=== PATIENT | female | born 1980 | race Caucasian/White ===

== ENCOUNTER 2017-07-26 05:09 | Day surgery (SDC) | payer MEDICAID ==
[2017-07-24 12:12] LABS: BASOPHILS 0.3 % (0-2); EOSINOPHILS 3.6 % (0-7); HEMATOCRIT 38.2 % (36.0-48.0); HEMOGLOBIN 12.3 g/dL (12-16); IMMATURE GRANULOCYTES 0.1 % (0-5); LYMPHOCYTES 20.4 % (15-50); MCH 27.4 pg (26.0-34.0); MCHC 32.2 g/dL (31.0-37.0); MCV 85.1 fL (80.0-100.0); MEAN PLATELET VOLUME 10.2 fL (7.4-10.4); MONOCYTES 4.9 % (2-11); NEUTROPHILS 70.7 % (40-80); PLATELET COUNT 161 10x3/uL (130-400); RBC 4.49 10x6/uL (4.00-5.40); RDW 14.5 % (11.5-14.5); WBC 7.8 10x3/uL (4.8-10.8)
[2017-07-24 12:22] LABS: CALC OSMOLALITY 277 mosm/kg (275-300); CALCIUM 8.9 mg/dL (8.5-10.1); CARBON DIOXIDE 27.1 mmol/L (21.0-32.0); CHLORIDE - SERUM 103 mmol/L (98-107); CREATININE - SERUM 0.8 mg/dL (0.6-1.3); GLUCOSE 95 mg/dL (74-106); POTASSIUM - SERUM 4.1 mmol/L (3.5-5.1); SODIUM 140 mmol/L (136-145); UREA NITROGEN 9 mg/dL (7-18); eGFR NON AFRICAN AMERICAN 85 mL/min (90-120)
[2017-07-26 06:32] VITALS: BP 150/66; BMI 32.6
[2017-07-26 06:37] LABS: HCG URINE NEGATIVE (NEGATIVE)
--- NOTE | 2017-07-26 07:03 | HP ---
PATIENT: MARVIN GALAN MEDICAL RECORD: [id number] ACCOUNT: [id number] LOCATION:[facility] : 79 ADMISSION DATE: 07/26/17 HISTORY AND PHYSICAL EXAMINATION HISTORY OF PRESENT ILLNESS: This patient is a 37-year-old white female who desires sterilization by tubal ligation and she desires endometrial ablation for abnormal uterine bleeding. MEDICAL HISTORY: DRUG ALLERGIES: None known. Denies heart disease, diabetes, hypertension, kidney problems, thyroid problems. PHYSICAL EXAMINATION: VITAL SIGNS: Stable. HEENT: Grossly unremarkable. LUNGS: Clear. HEART: Regular rate and rhythm. ABDOMEN: Soft and nontender. PELVIC: Examination is current and deferred for anesthesia. EXTREMITIES: No cyanosis, clubbing or edema. NEUROLOGIC: Grossly intact. IMPRESSION: Menorrhagia, undesired fertility. PLAN: Endometrial ablation and laparoscopic tubal sterilization in a.m. I have discussed with the patient the potential risks of surgery, anesthesia, infection, bleeding, injury to pelvic organs, second operation if problems were do occur. TRANSINT:[id number] Voice Confirmation ID: [id number] DOCUMENT ID: [id number] DO BAIN MD at 0703 CC: [id number] DICTATION DATE: 07/25/17 1314 CALCINER OPERATOR: 07/25/17 [id number] [place] [address]
--- NOTE | 2017-07-26 13:17 | NUR ---
1317--PHENERGHAN 25MG IM GIVEN FOR NAUSEA IN LEFT BUTTOCKS. HGSHAHRIAR RN
--- NOTE | 2017-07-26 17:17 | NUR ---
1317--PT COMPLAINS OF PAIN, DEMEROL 50MG GIVEN X1 TAB BY MOUTH. WILL CONTINUE TO MONITOR. ROSSI RN
--- NOTE | 2017-07-26 17:28 | NUR ---
1447--PT VOIDS, IV DC'D. ROSSI DU 1500--DISCHARGE INSTRUCTIONS GIVEN, PT VERBALIZES UNDERSTANDING. PT OFF UNIT VIA WC. ROSSI DU
== END 2017-07-26 15:00 | disposition home or self-care (01) ==
LOC: D.OPS 05:09 → D.PAN 07:30 → D.OPS 07:30
PROVIDERS: Obstetrics & Gynecology
DX: Z30.2 Encounter for sterilization (principal); N92.0 Excessive and frequent menstruation with regular cycle; N83.02 Follicular cyst of left ovary; N83.8 Other noninflammatory disorders of ovary, fallopian tube and broad ligament; Z01.812 Encounter for preprocedural laboratory examination

== ENCOUNTER → 2018-09-25 07:55 | Outpatient (CLI) | payer MEDICAID | LOC: D.US 07:55 | DX: N83.202 Unspecified ovarian cyst, left side (principal) ==

== ENCOUNTER 2018-10-21 01:33 | Emergency (ER) | payer MEDICAID ==
[~2018-10-21] VITALS: Ht 165.1 cm; Wt 79.5 kg
[2018-10-21 01:39] VITALS: Ht 165.1 cm; Wt 79.5 kg
[2018-10-21] MEDS ORDERED: VISTARIL25 MG (01:40)
[2018-10-21] MEDS ORDERED: ARMOUR THYROID90 MG (01:40)
[2018-10-21] MEDS ORDERED: LEXAPRO5 MG (01:40)
[2018-10-21] MEDS ORDERED: FISH OIL 1,0001 CA1 (01:41)
[2018-10-21] MEDS ORDERED: VITAMIN D10000 UNI1 (01:41)
[2018-10-21] MEDS ORDERED: IBUPROFEN600 MG (01:41)
[2018-10-21] MEDS ORDERED: FER-IN-SOL DROP50 ML (01:41)
[2018-10-21 02:06] LABS: APPEARANCE HAZY (CLEAR); BILIRUBIN NEGATIVE (NEGATIVE); COLOR YELLOW (YELLOW); GLUCOSE NEGATIVE (NEGATIVE); HCG URINE NEGATIVE (NEGATIVE); KETONE SMALL mg/dL (NEGATIVE); NITRITE NEGATIVE (NEGATIVE); PROTEIN TRACE mg/dL (NEGATIVE); UROBILINOGEN NORMAL (NORMAL)
[2018-10-21 02:19] LABS: BACTERIA FEW /hpf (NONE SEEN); EPITHELIAL CELLS OCC /hpf (0-5); HYALINE CAST OCC /lpf (NONE SEEN); MUCUS <1+ /lpf (NONE SEEN); RED CELLS - URINE 0-5 /hpf (0-5); WHITE CELLS - URINE 0-5 /hpf (0-5)
[2018-10-21 02:23] LABS: BASOPHILS 0.3 % (0-2); EOSINOPHILS 1.5 % (0-7); HEMATOCRIT 37.9 % (36.0-48.0); HEMOGLOBIN 12.4 g/dL (12-16); IMMATURE GRANULOCYTES 0.1 % (0-5); LYMPHOCYTES 19.9 % (15-50); MCH 28.9 pg (26.0-34.0); MCHC 32.7 g/dL (31.0-37.0); MCV 88.3 fL (80.0-100.0); MEAN PLATELET VOLUME 10.8 fL (7.4-10.4); MONOCYTES 4.4 % (2-11); NEUTROPHILS 73.8 % (40-80); PLATELET COUNT 181 10x3/uL (130-400); RBC 4.29 10x6/uL (4.00-5.40); RDW 13.5 % (11.5-14.5); WBC 9.2 10x3/uL (4.8-10.8)
[2018-10-21 02:44] LABS: ALBUMIN 3.5 g/dL (3.4-5.0); ANION GAP 14.4 mmol/L (8-16); BILIRUBIN - TOTAL 0.29 mg/dL (0.2-1.3); CALCIUM 9.6 mg/dL (8.5-10.1); CARBON DIOXIDE 25.9 mmol/L (21.0-32.0); CREATININE - SERUM 0.9 mg/dL (0.6-1.3); POTASSIUM - SERUM 4.3 mmol/L (3.5-5.1); PROTEIN - SERUM 7.4 g/dL (6.4-8.2)
[2018-10-21] MEDS ORDERED: NORCO 7.5/325 T1 TA1 PO (04:05)
[2018-10-21 04:35] VITALS: BP 145/79
== END 2018-10-21 04:36 | disposition home or self-care (01) ==
LOC: D.ER 01:33
PROVIDERS: Emergency Medicine
DX: R10.2 Pelvic and perineal pain (principal)

== ENCOUNTER 2019-01-21 20:19 | Emergency (ER) | payer MEDICAID ==
[~2019-01-21] VITALS: Ht 165.1 cm; Wt 81.6 kg
[~2019-01-21 20:19] MED LIST: ARMOUR THYROID90 MG; FER-IN-SOL DROP50 ML; FISH OIL 1,0001 CA1; IBUPROFEN600 MG; LEXAPRO5 MG; NORCO 7.5/325 T1 TA1 PO; VISTARIL25 MG; VITAMIN D10000 UNI1
[2019-01-21] MEDS ORDERED: SUMATRIPTAN SUC25 MG (20:39)
[2019-01-21 21:47] LABS: BASOPHILS 0.3 % (0-2); EOSINOPHILS 3.3 % (0-7); HEMATOCRIT 39.7 % (36.0-48.0); HEMOGLOBIN 13.1 g/dL (12-16); IMMATURE GRANULOCYTES 0.3 % (0-5); LYMPHOCYTES 18.8 % (15-50); MCH 27.8 pg (26.0-34.0); MCV 84.1 fL (80.0-100.0); MEAN PLATELET VOLUME 10.4 fL (7.4-10.4); MONOCYTES 4.9 % (2-11); NEUTROPHILS 72.4 % (40-80); PLATELET COUNT 186 10x3/uL (130-400); RBC 4.72 10x6/uL (4.00-5.40); RDW 14.3 % (11.5-14.5); WBC 10.4 10x3/uL (4.8-10.8)
[2019-01-21 21:52] LABS: ALBUMIN 3.6 g/dL (3.4-5.0); ALKALINE PHOSPHATASE 63 U/L (46-116); ALT (SGPT) 25 U/L (10-68); BILIRUBIN - TOTAL 0.42 mg/dL (0.2-1.3); CALC OSMOLALITY 276 mosm/kg (275-300); CALCIUM 9.1 mg/dL (8.5-10.1); CARBON DIOXIDE 27.1 mmol/L (21.0-32.0); CHLORIDE - SERUM 102 mmol/L (98-107); CREATININE - SERUM 0.9 mg/dL (0.6-1.3); GLUCOSE 95 mg/dL (74-106); POTASSIUM - SERUM 3.6 mmol/L (3.5-5.1); PROTEIN - SERUM 7.8 g/dL (6.4-8.2); SODIUM 138 mmol/L (136-145); UREA NITROGEN 14 mg/dL (7-18); eGFR NON AFRICAN AMERICAN 74 mL/min (90-120)
[2019-01-21 21:57] LABS: AMYLASE - SERUM 35 U/L (25-115); LIPASE 177 U/L (73-393)
[2019-01-21 21:58] LABS: TROPONIN-I < 0.017 ng/mL (0.000-0.060)
[2019-01-21 22:00] LABS: APPEARANCE HAZY (CLEAR); BILIRUBIN NEGATIVE (NEGATIVE); COLOR YELLOW (YELLOW); GLUCOSE NEGATIVE (NEGATIVE); KETONE NEGATIVE (NEGATIVE); NITRITE NEGATIVE (NEGATIVE); PROTEIN NEGATIVE (NEGATIVE); SPECIFIC GRAVITY 1.025 (1.005-1.020); UROBILINOGEN NORMAL (NORMAL)
[2019-01-21 22:02] LABS: BACTERIA MANY /hpf (NONE SEEN); RED CELLS - URINE 0-5 /hpf (0-5)
[2019-01-21] MEDS ORDERED: MACROBID100 MG PO (23:13)
== END 2019-01-21 23:18 | disposition home or self-care (01) ==
LOC: D.ER 20:19
PROVIDERS: Family Medicine
DX: N39.0 Urinary tract infection, site not specified (principal); R93.3 Abnormal findings on diagnostic imaging of other parts of digestive tract

== ENCOUNTER 2019-02-20 04:21 | Emergency (ER) | payer BC ==
[~2019-02-20] VITALS: Ht 165.1 cm; Wt 77.3 kg
[~2019-02-20 04:21] MED LIST changes: +MACROBID100 MG PO; +SUMATRIPTAN SUC25 MG
[2019-02-20] MEDS ORDERED: EFFEXOR50 MG (04:26)
[2019-02-20] MEDS ORDERED: NAPROSYN500 MG PO (04:38)
[2019-02-20] MEDS ORDERED: SKELAXIN800 MG PO (04:38)
== END 2019-02-20 04:49 | disposition home or self-care (01) ==
LOC: D.ER 04:21
DX: S39.012A Strain of muscle, fascia and tendon of lower back, initial encounter (principal); X50.9XXA Other and unspecified overexertion or strenuous movements or postures, initial encounter; Y93.89 Activity, other specified; Y92.238 Other place in hospital as the place of occurrence of the external cause

== ENCOUNTER 2019-03-25 02:49 | Observation (INO) | payer BC ==
--- NOTE | ~2019-03-25 | HEMODYNAMI ---
PATIENT:MARVIN GALAN MEDICAL RECORD: [id number] : 78 [facility] [id number] ADMISSION DATE: 03/25/19 Generatedon:03/25/20199:24 Patient name: MARVIN GALAN Patient #: [id number] SSN: : [id number] Date of study: 03/25/2019 Page: Of Hemodynamic Procedure Report Patient Data Patient Demographics Procedure consent was obtained First Name: MARVIN Gender: Female Last Name: ANGELIA : 1980 Middle Initial: M Age: 38 year(s) Patient #: [id number] Race: Unknown Additional ID: [id number] Contact details [address]: [address] [place] [address] State: [place] City: [place] Zip code: [address] Admission Admission Data Admission Date: 03/25/2019 Admission Time: 4:15 Arrival Date: 03/25/2019 Arrival Time: 4:15 Admit Source: Other Insurance Payor: Private Room #: D.2115 health insurance Height (in.): 65 BSA: 1.88 (m2) Height (cm.): 165.1 BMI: 29.62 (kg/m2) Weight (lbs.): 178 Weight (kg.): 80.74 Lab Results Lab Result Date: 03/25/2019 Lab Result Time: 0:00 Biochemistry Name Units Result Min Max BUN mg/dl 11 --(-*--)-- 7 18 Creatinine mg/dl 1.1 --(--*-)-- 0.6 1.3 CBC Name Units Result Min Max Hemoglobin g/dl 14.4 --(*---)-- 13.5 17.5 Procedure Procedure Types Cath Procedure Diagnostic Procedure C [facility] w/Coronaries Procedure Description Procedure Date Procedure Date: 03/25/2019 Procedure Start Time: 9:13 Procedure End Time: 9:22 Procedure Staff Name Function Robin Salomon MD Performing Physician Jami Spears RT Monitor Marissa Gallardo RT Scrub Ester Maria RN Nurse Procedure Data Cath Procedure Fluoroscopy Diagnostic fluoroscopy Total fluoroscopy Time: 1.2 time: 1.2 min min Diagnostic fluoroscopy Total fluoroscopy dose: 223 dose: 223 mGy mGy Contrast Material Contrast Material Type Amount (ml) Isovue 370 37 Entry Location Entry Primary Successful Side Size Upsize Upsize Entry Closure Succes sful Closure Location (Fr) 1 (Fr) 2 (Fr) Remarks Device Remarks Femoral Right 5 Fr Exoseal artery Estimated blood loss: 5 ml Diagnostic catheters Device Type Used For End Catheter Placement MULTIPACK JL 4.0 5Fr Left Coronary catheter Angiography MULTIPACK 3DRC 5Fr Right Coronary catheter Angiography MULTIPACK Pigtail 5 Fr LV Angiography catheter Procedure Complications No complications Procedure Medications Medication Administration Route Dosage 0.9% NaCl I.V. 100 ml/hr Oxygen etCO2 Nasal cannula 2 l/min Lidocaine 2% added to field 20 Heparin Flush Bag added to field 2 bags (1000units/500ml NS) Versed I.V. 2 mg Fentanyl I.V. 50 mcg Versed I.V. 1 mg Fentanyl I.V. 25 mcg Hemodynamics Rest BSA: 1.88 (m2) HGB: 14.4 (g/dl) O2 Consumption: Estimated: 210.47 (ml/min) O2 Co nsumption indexed: Estimated:111.95 (ml/min/m) Heart Rate: 96 (bpm) Pressure Samples Time Site Value (mmHg) Purpose Heart Use Rate(bpm) 9:19 LV 141/6,7 Snapshot 114 Gradients Valve Time Site Site Mean SEP/DFP Peak To Heart Use 1 2 (mmHg) (sec/min) Peak Rate (mmHg) (bpm) Aortic 9:19 LV AO 90 Snapshots Pre Cath Intra NCS Post Cath Vital Signs Time Heart Resp SPO2 etCO2 NIBP (mmHg) Rhythm Pain Sedation Rate (ipm) (%) (mmHg) Status Level (bpm) 8:55:19 94 12 100 35.4 151/77(113) NSR 0 (11) 10(A) , No pain 8:59:37 96 11 98 36.2 137/84(122) NSR 0 (11) 10(A) , No pain 9:03:59 89 10 98 39.2 132/82(122) NSR 0 (11) 10(A) , No pain 9:08:17 90 10 99 38.4 139/88(115) NSR 0 (11) 9(A) , No pain 9:12:31 86 10 99 41.4 142/90(108) NSR 0 (11) 9(A) , No pain 9:17:30 96 11 98 38.4 Measuring NSR 0 (11) 9(A) , No pain 9:22:48 98 14 100 31.7 151/80(115) NSR 0 (11) 10(A) , No pain Medications Time Medication Route Dose Verified Delivered Reason Notes Effe ctiveness by by 8:54:03 0.9% NaCl I.V. 100 Robin Ester used for ml/hr Conesus Crow procedure MD DU 8:54:10 Oxygen etCO2 2 Robin Ester used for Nasal l/min [facility] procedure cannula MD DU 8:54:15 Lidocaine 2% added 20ml Robin Robin for local to vial [facility] anesthetic field MD MCGRATH 8:54:20 Heparin Flush added 2 Robin Robin used for Bag to bags [facility] procedure (1000units/500ml field MD MCGRATH NS) 9:00:13 Versed I.V. 2 mg Robin Ester for Conesus Crow sedation MD DU 9:00:19 Fentanyl I.V. 50 Robin Ester for mcg Conesus Crow sedation MD DU 9:05:46 Fentanyl I.V. 25 Robin Ester for mcg UmmKvng Maria sedation MD DU 9:06:34 Versed I.V. 1 mg Robin Ester for UmmKvng Maria sedation MD DUderrick barge operator Log Time Note 8:35:32 Signed procedure consent form obtained from patient. 8:35:34 Diagnostic Cath status Urgent 8:35:35 Time tracking: Regular hours (M-F 7:00 - 5:00) 8:35:39 Plan of Care:Hemodynamics will remain stable., Cardiac rhythm will remain stable., Comfort level will be maintained., Respiratory function will remain adequate., Patient/ family verbilizes understanding of procedure., Procedure tolerated without complication., Recovers from procedure without complications.. 8:36:31 Ester Maria RN sent for patient. Start room use. 8:39:26 Patient not . Patient has had tubal. 8:39:27 Patient not . Patient has had hysterectomy. 8:47:33 Patient received from Med II to CCL 1 Alert and oriented. Tansferred to table in Supine position. 8:47:34 Warm blankets applied, and leobardo hugger turned on for patient comfort. 8:47:37 Correct patient and procedure confirmed by team. 8:47:38 ECG and BP/O2 sat monitors applied to patient. 8:53:56 Vital chart was started 8:54:03 0.9% NaCl 100 ml/hr I.V. was administered by Ester Maria RN; used for procedure; 8:54:10 Oxygen 2 l/min etCO2 Nasal cannula was administered by Ester Maria RN; used for procedure; 8:54:15 Lidocaine 2% 20ml vial added to field was administered by Robin Salomon MD; for local anesthetic; 8:54:20 Heparin Flush Bag (1000units/500ml NS) 2 bags added to field was administered by Robin Salomon MD; used for procedure; 8:55:54 Baseline sample Acquired. 8:55:57 Rhythm: sinus rhythm 8:55:59 Full Disclosure recording started 8:56:06 H&P Date Dictated: 03/25/2019 New H&P dictated by physician.. 8:56:08 Pre-procedure instructions explained to patient. 8:56:08 Pre-op teaching completed and patient verbalized understanding. 8:56:09 Family in waiting room. 8:56:10 Patient NPO since Midnight. 8:56:12 Is the patient allergic to Iodine/contrast media? No. 8:56:14 Was the patient premedicated? No 8:56:15 Is patient on blood thinner?No 8:56:16 Patient diabetic? No. 8:56:19 Previous problem with sedation/anesthesia? No ? 8:56:21 Snore? Yes 8:56:23 Sleep apnea? No 8:56:23 Deviated septum? No 8:56:24 Opens mouth fully? Yes 8:56:25 Sticks out tongue? Yes 8:56:27 Airway obstruction? No ? 8:56:31 Dentures? No ? 8:56:35 Pre procedure: right dorsailis pedis pulse 2+ Normal; easily identifiable; not easily obliterated 8:56:37 Pre procedure: left dorsailis pedis pulse 2+ Normal; easily identifiable; not easily obliterated 8:56:39 Patient pain scale 0/10 ?. 8:56:44 IV patent on arrival in right forearm with 0.9% NaCl at [facility]. 8:56:46 Lab results completed and on chart. 8:56:51 Right groin area was prepped with chlora-prep and draped in sterile fashion 8:56:52 Alarms reviewed by R. N. 8:56:52 Sharps counted by scrub and verified by R.N. 8:56:54 Physician arrived 8:56:54 --------ALL STOP TIME OUT------ 8:56:55 Final Timeout: patient, procedure, and site verified with staff and physician. All members of the team are in agreement. 8:56:57 Right groin site verified by team. 8:57:01 Maximum allowable Isovue 370 dose 300ml. Physician notified. (300ml for normal creatinines. For patients with creatinine of 1.7 or higher multiply weight(kg) x 5 divided by creatinine.) 8:57:05 Fire Safety Assessment: A--An alcohol-based skin anteseptic being used preoperatively., C--Open oxygen or nitrous oxide is being used., D--An ESU, laser, or fiber-optic light is being used. 8:57:08 Physical assessment completed. ASA score P 2 - A patient with mild systemic disease as per Robin Salomon MD. 8:57:12 Sedation plan: IV Moderate Sedation Medication:Versed, Fentanyl 8:59:58 Lab Result : Creatinine 1.1 mg/dl 8:59:58 Lab Result : BUN 11 mg/dl 8:59:58 Lab Result : Hemoglobin 14.4 g/dl 9:00:04 Use device set Femoral Dx 9:00:05 ACIST Syringe (52849) opened to sterile field. 9:00:05 Bag Decanter (2002S) opened to sterile field. 9:00:06 Medline Cath Pack ([id number]) opened to sterile field. 9:00:06 DIAGNOSTIC WIRE .035 260cm J wire (991779) opened to sterile field. 9:00:08 ACIST Hand Control (77787) opened to sterile field. 9:00:08 ACIST Manifold (51148) opened to sterile field. 9:00:09 DIAGNOSTIC Multipack 5Fr catheter set (DN9437) opened to sterile field. 9:00:09 Tegaderm 4 x 4 (1626W) opened to sterile field. 9:00:10 SHEATH 5FR [place] (NNC630) opened to sterile field. 9:00:13 Versed 2 mg I.V. was administered by Ester Maria RN; for sedation; 9:00:19 Fentanyl 50 mcg I.V. was administered by Ester Maria RN; for sedation; 9:00:41 Admit Source: Other 9:00:54 Patient Height : 65 inches 9:00:58 Patient Weight : 178 lbs 9:01:14 Arrival Date: 03/25/2019 4:15:00 AM 9:01:24 Insurance Payor : Private health insurance 9:03:04 Zero performed for pressure channel P1 9:05:46 Fentanyl 25 mcg I.V. was administered by Ester Maria RN; for sedation; 9:06:34 Versed 1 mg I.V. was administered by Ester Maria RN; for sedation; 9:12:57 Procedure started. 9:13:12 Local anesthetic to right femoral artery with Lidocaine 2% by Robin Salomon MD.INITIAL ACCESS ONLY 9:13:26 A 5 Fr sheath was inserted into the Right Femoral artery 9:14:03 A MULTIPACK JL 4.0 5Fr catheter was advanced over the wire and used for Left Coronary Angiography. 9:15:44 LCA angiography performed. 9:15:58 Injector settings: Ml/sec: 3, Volume: 6, 9:17:16 Catheter removed. 9:17:25 A MULTIPACK 3DRC 5Fr catheter was advanced over the wire and used for Right Coronary Angiography. 9:18:01 RCA angiography performed. 9:18:04 Injector settings: Ml/sec: 3, Volume: 6, 9:18:19 Catheter removed. 9:18:33 A MULTIPACK Pigtail 5 Fr catheter was advanced over the wire and used for LV Angiography. 9:19:52 EF : 55 % 9:19:58 LV hemodynamics recorded. 9:19:59 LV gram done using GARCIA 9:20:01 Injector settings: Ml/sec: 5, Volume: 15, 9:20:03 Catheter removed. 9:20:05 EXOSEAL 5Fr (EX500) opened to sterile field. 9:20:32 Sheath removed intact; hemostasis achieved with Exoseal to the Right Femoral artery. 9:20:33 Procedure ended.(Physican Out) 9:20:55 Fluoroscopy time 01.20 minutes. 9:20:59 Fluoroscopy dose: 223 mGy 9:20:59 Flurop Dose total: 223 9:21:04 Contrast amount:Isovue 370 37ml. 9:21:06 Sharps counted by scrub and verified by R.N. 9:21:07 Insertion/operative site no bleeding no hematoma. 9:21:10 Post-op/insertion site Right Femoral artery dressed using a 4 x 4 and Tegaderm. 9:21:12 Post right femoral artery:stable 9:21:14 Post Procedure Pulses reassessed and unchanged 9:21:16 Post procedure rhythm: unchanged. 9:21:19 Estimated blood loss: 5 ml 9:21:21 Post procedure instruction explained to patient.Patient verbalizes understanding. 9:21:22 Patient needs reinforcement of post procedure teaching. 9:21:27 Procedure and supply charges have been captured, reviewed, submitted and are correct. 9:21:32 Procedure Complication : No complications 9:21:35 Vital chart was stopped 9:21:36 See physician's report for complete and final results. 9:22:10 Report given to [facility]. 9:22:18 Patient transfered to [facility] with Stretcher. 9:22:20 Procedure ended. 9:22:20 Full Disclosure recording stopped 9:22:25 End room use (Document Last) Device Usage Item Name Manufacture Quantity Catalog Hospital Part Current Minimal L ot# / Number Charge Number Stock Stock Serial# Code ACIST Acist 1 44673 [id number] 512341 882068 20 Syringe Medical (29992) Systems Inc Bag Microtek 1 559711 69192 386794 5 Decanter Medical Inc. () Medline Medline 1 [id number] 754641 62540 288103 5 Cath Pack ([id number]) DIAGNOSTIC [facility] 1 033004 758777 655823 046339 30 WIRE .035 260cm J wire (034089) ACIST Hand Acist 1 49443 007000 276975 404336 5 Control Medical (83240) Systems Inc ACIST Acist 1 34187 198016 116684 895569 5 Manifold Medical (49339) Systems Inc DIAGNOSTIC Cardinal 1 VY8703 301255 78206 001841 30 Multipack Health 5Fr catheter set (JP0192) Tegaderm 4 3M 1 1626W 350869 989005 805650 5 x 4 (1626W) SHEATH 5FR Terumo 1 FPV003 818332 625367 358526 5 [place] (RBA092) MULTIPACK Cardinal 1 584866 5 JL 4.0 5Fr Health catheter MULTIPACK Cardinal 1 012962 5 3DRC 5Fr Health catheter MULTIPACK Cardinal 1 104921 5 Pigtail 5 Health Fr catheter EXOSEAL 5Fr Cardinal 1 EX500 540642 158898 136424 10 (EX500) Health Signature Audit [place] Stage Time Signature Unsigned Intra-Procedure 03/25/2019 Jami Spears 9:24:36 AM RT(R) Signatures Monitor : Jami Spears RT Signature : Date : Time : [address] [place] [address]
[~2019-03-25 02:49] MED LIST changes: +EFFEXOR50 MG; +NAPROSYN500 MG PO; +SKELAXIN800 MG PO
[2019-03-25 03:17] LABS: BASOPHILS 0.3 % (0-2); EOSINOPHILS 3.1 % (0-7); HEMATOCRIT 43.5 % (36.0-48.0); HEMOGLOBIN 14.4 g/dL (12-16); IMMATURE GRANULOCYTES 0.2 % (0-5); LYMPHOCYTES 19.5 % (15-50); MCH 27.5 pg (26.0-34.0); MCHC 33.1 g/dL (31.0-37.0); MEAN PLATELET VOLUME 10.8 fL (7.4-10.4); MONOCYTES 4.9 % (2-11); PLATELET COUNT 190 10x3/uL (130-400); RBC 5.24 10x6/uL (4.00-5.40); RDW 14.2 % (11.5-14.5); WBC 11.8 10x3/uL (4.8-10.8)
[2019-03-25 03:26] LABS: APPEARANCE CLOUDY (CLEAR); BILIRUBIN NEGATIVE (NEGATIVE); COLOR YELLOW (YELLOW); EPITHELIAL CELLS 0-5 /hpf (0-5); GLUCOSE NEGATIVE (NEGATIVE); KETONE SMALL mg/dL (NEGATIVE); NITRITE NEGATIVE (NEGATIVE); PROTEIN TRACE mg/dL (NEGATIVE); RED CELLS - URINE NONE SEEN /hpf (0-5); UROBILINOGEN NORMAL (NORMAL); WHITE CELLS - URINE 0-5 /hpf (0-5)
[2019-03-25 03:27] LABS: BACTERIA NONE SEEN /hpf (NONE SEEN)
[2019-03-25 03:29] LABS: ALBUMIN 3.9 g/dL (3.4-5.0); ALKALINE PHOSPHATASE 65 U/L (46-116); ALT (SGPT) 25 U/L (10-68); BILIRUBIN - TOTAL 0.43 mg/dL (0.2-1.3); CALC OSMOLALITY 269 mosm/kg (275-300); CARBON DIOXIDE 18.4 mmol/L (21.0-32.0); CHLORIDE - SERUM 106 mmol/L (98-107); CREATININE - SERUM 1.1 mg/dL (0.6-1.3); GLUCOSE 118 mg/dL (74-106); POTASSIUM - SERUM 3.6 mmol/L (3.5-5.1); PROTEIN - SERUM 8.2 g/dL (6.4-8.2); SODIUM 135 mmol/L (136-145); UREA NITROGEN 11 mg/dL (7-18); eGFR NON AFRICAN AMERICAN 59 mL/min (90-120)
[2019-03-25 03:37] LABS: LIPASE 140 U/L (73-393); THYROID STIMULATING HORMONE 2.97 uIU/mL (0.36-3.74); TROPONIN-I < 0.017 ng/mL (0.000-0.060)
[2019-03-25 04:27] VITALS: BP 131/85
[2019-03-25] MEDS ORDERED: IMITREX50 MG PO (04:52)
[2019-03-25 05:11] VITALS: BP 137/79; BMI 28.3; BMI 29.6
--- NOTE | 2019-03-25 07:16 | NUR ---
ALERT AND ORIENTED. UP AB VIVIANA. TELEMERTY SHOWS SR AT 90. RIGHT AC SL. DENIES ANY NEEDS OR DISCOMFORT. NEG EKG AND LAB. WILL MONITOR. SR UP WITH CALL LIGHT IN REACH
[2019-03-25 07:59] VITALS: BP 139/74
[2019-03-25 08:17] LABS: BASOPHILS 0.3 % (0-2); EOSINOPHILS 2.9 % (0-7); HEMATOCRIT 40.9 % (36.0-48.0); HEMOGLOBIN 13.6 g/dL (12-16); IMMATURE GRANULOCYTES 0.2 % (0-5); LYMPHOCYTES 16.3 % (15-50); MCHC 33.3 g/dL (31.0-37.0); MCV 84.2 fL (80.0-100.0); MEAN PLATELET VOLUME 11.2 fL (7.4-10.4); MONOCYTES 4.9 % (2-11); NEUTROPHILS 75.4 % (40-80); PLATELET COUNT 189 10x3/uL (130-400); RBC 4.86 10x6/uL (4.00-5.40); RDW 14.5 % (11.5-14.5); WBC 10.6 10x3/uL (4.8-10.8)
[2019-03-25 08:21] LABS: ANION GAP 17.5 mmol/L (8-16); CALCIUM 8.8 mg/dL (8.5-10.1); CARBON DIOXIDE 16.2 mmol/L (21.0-32.0); POTASSIUM - SERUM 3.7 mmol/L (3.5-5.1)
--- NOTE | 2019-03-25 08:44 | NUR ---
PRE OPD AND TO DIRECTOR OF REAL ESTATE
--- NOTE | 2019-03-25 10:11 | NUR ---
BACK FROM EARLY CHILDHOOD EDUCATOR AIDE. TELEMERTY SHOWS SR. RIGHT GROIN SOFT WITH DRSG DRY AND INTACT.PPP V/S STABLE. DENUES ANY NEEDS,
[2019-03-25 12:04] VITALS: BP 134/77
[2019-03-25 12:41] VITALS: BMI 29.6
--- NOTE | 2019-03-25 15:19 | NUR ---
PT STARTED ON ORAL ANTIBOTICS. CATH SITE SOFT WITH DRSG DRY AND INTACT. AWAITING DISCHARGE.
--- NOTE | 2019-03-25 18:16 | NUR ---
PT DISCHARGED. IV DCD WITH TIP INTACT. DRSG TO RIGHT GROIN DRY AND INTACT.PPP. INSTRUCTIONS GIVEN TO PT WELL WORK EXCUSE. WILL MONITOR
--- NOTE | 2019-03-26 15:37 | CN ---
PATIENT NAME:MARVIN GALAN MEDICAL RECORD: [id number] : 78 LOCATION:[facility] D.2115 ADMIT DATE: 03/25/19 ACCOUNT: [id number] CONSULTING PHYSICIAN: PHIL KAPLAN MD REFERRING PHYSICIAN: JULIO BETH MD DATE OF CONSULTATION: 03/25/2019 HISTORY OF PRESENT ILLNESS: A 38-year-old female with a strong family history of coronary artery disease including mother suddenly of sudden cardiac , admitted with 3-day history of chest pain status. She has noted over the past 2-3 weeks increased dyspnea, I initially thought this could be reflux; however, tried PPIs as well as antacids with no relief. We are asked to see her concerning her cardiovascular status. Had rest symptomatology prompting admission yesterday. PAST MEDICAL HISTORY: Includes; 1. History of dyslipidemia, on fish oil. 2. Hypothyroidism. 3. Anxiety. ALLERGIES: SULFA, ASPIRIN AND PENICILLIN. SOCIAL HISTORY: Works fulltime, nonsmoker, nondrinker. Usually takes care of her ADLs. MEDICATIONS: Typically include fish oil t.i.d., Imitrex as needed, Effexor 50 mg p.o. daily, Vistaril 25 mg every 6 hours p.r.n., Synthroid 90 mcg every day. REVIEW OF SYSTEMS: The patient reports easy bruising but reports no swollen glands. The patient reports no fever, no night sweats, no significant weight gain, no significant weight loss. No significant exercise tolerance. The patient reports no dry eyes, no irritation, no vision change. Patient reports no difficulty hearing and no ear pain. Patient reports no frequent nose bleeds or nose and sinus problems. Patient reports on arm pain on exertion. No shortness of breath while lying down. No history of heart murmur. Patient reports no cough, no wheezing or coughing up blood. Patient reports no abdominal pain, no vomiting. Normal appetite. No diarrhea and not vomiting blood. No nausea and no constipation. Patient reports no incontinence. No difficulty urinating. No hematuria. No increased frequency. Patient reports no muscle aches. No weakness, no arthralgias, no back pain. No swelling of the extremities. Patient reports no abnormal mole, no jaundice, no rashes. Reports no loss of consciousness. No weakness and no numbness. No seizures, dizziness, or headaches. The patient reports no depression, no sleep disturbance, feeling safe in a relationship and no alcohol abuse. Patient reports on fatigue. Reports no runny nose or sinus pressure. No itching, no hives, and no frequent sneezing. PHYSICAL EXAMINATION: GENERAL: Pleasant female in no acute distress, appears stated age. VITAL SIGNS: Blood pressure 139/74, pulse 96 and regular. HEENT: Normocephalic, atraumatic. NECK: No bruits noted. HEART: Regular, II/ systolic ejection murmur. CHEST: Good air excursion. ABDOMEN: Soft, nontender. CONSULT REPORT [id number] MARVIN GALAN EXTREMITIES: Pulses 2+ with no edema. DIAGNOSTIC DATA: ECG, nonspecific ST-T changes in the high lateral leads. IMPRESSION: Acute coronary syndrome with abnormal ECG. PLAN: For angiography, intervention based on the above. TRANSINT:[id number] Voice Confirmation ID: [id number] DOCUMENT ID: [id number] PHIL KAPLAN MD at 1537 CC: [id number] DICTATION DATE: 03/25/19926 CAST ASSOCIATE: 03/25/19 1222 DIS IN 03/25/19 [facility] [address] [place] [address]
--- NOTE | 2019-03-26 15:37 | OP ---
PATIENT NAME: MARVIN GALAN MEDICAL RECORD: [id number] :78 LOCATION:D.M2 D.2115 ADMISSION DATE:03/25/19 SURGEON: PHIL KAPLAN MD DATE OF OPERATION: 03/25/2019 PROCEDURE: Left heart catheterization, selective coronary angiography, right femoral artery approach. CATHETERS: A 5-Frisian sheath, 5/4 left and right Lavern, 5/4 pig. The procedure was well tolerated. The patient was returned to matos. Sheath was removed. ExoSeal device was placed. FINDINGS: Left ventriculography in 30-degree GARCIA view: Normal wall motion. Normal systolic function. CORONARY ANATOMY: LEFT MAIN: Left main is free of disease. LAD: LAD is free of disease in the diagonal system. CIRCUMFLEX: Left dominant system and free of disease. RIGHT CORONARY ARTERY: Rudimentary and free of disease. IMPRESSION: Normal LV systolic function. Normal coronary anatomy. TRANSINT:[id number] Voice Confirmation ID: [id number] DOCUMENT ID: [id number] PHIL KAPLAN MD at 1537 CC: [id number] DICTATION DATE: 03/25/19 0928 PULP REFINER OPERATOR: 03/25/19 1215 DIS IN 03/25/19 [facility] [address] [place] [address]
== END 2019-03-25 18:19 | disposition home or self-care (01) ==
LOC: D.ER 02:49 → D.M2 04:15 → OBSVTIME 04:15 → D.M2 18:19
PROVIDERS: Family Medicine; Internal Medicine Interventional Cardiology; ADMIT Internal Medicine Nephrology; ATTEND Internal Medicine Nephrology
DX: I24.9 Acute ischemic heart disease, unspecified (principal); R94.30 Abnormal result of cardiovascular function study, unspecified; E78.5 Hyperlipidemia, unspecified; E03.9 Hypothyroidism, unspecified; F41.9 Anxiety disorder, unspecified; I20.0 Unstable angina

== ENCOUNTER 2019-07-01 22:08 | Emergency (ER) | payer BC ==
[~2019-07-01] VITALS: Ht 165.1 cm; Wt 79.5 kg
[~2019-07-01 22:08] MED LIST changes: +IMITREX50 MG PO
[2019-07-01 22:12] VITALS: BP 130/79; Ht 165.1 cm; Wt 79.5 kg
[2019-07-01] MEDS ORDERED: EFFEXOR XR150 MG PO (22:14)
[2019-07-01] MEDS ORDERED: LISINOPRIL10 MG PO (22:14)
[2019-07-01] MEDS ORDERED: LIPITOR20 MG PO (22:14)
== END 2019-07-01 22:35 | disposition left against medical advice (07) ==
LOC: D.ER 22:08
DX: R11.2 Nausea with vomiting, unspecified (principal)

== ENCOUNTER 2019-07-21 03:01 | Emergency (ER) | payer BC ==
[~2019-07-21] VITALS: Ht 165.1 cm; Wt 79.5 kg
[~2019-07-21 03:01] MED LIST changes: +EFFEXOR XR150 MG PO; +LIPITOR20 MG PO; +LISINOPRIL10 MG PO
[2019-07-21 03:10] VITALS: Ht 165.1 cm; Wt 79.5 kg
[2019-07-21] MEDS ORDERED: ZOVIRAX400 MG PO (03:11)
[2019-07-21] MEDS ORDERED: DICLOFENAC SODI50 MG PO (03:31)
[2019-07-21] MEDS ORDERED: HYDROCODON-ACE1 EAC7 PO (03:32)
[2019-07-21 03:53] VITALS: BP 133/82
== END 2019-07-21 10:53 | disposition home or self-care (01) ==
LOC: D.ER 03:01
DX: S46.911A Strain of unspecified muscle, fascia and tendon at shoulder and upper arm level, right arm, initial encounter (principal); X50.0XXA Overexertion from strenuous movement or load, initial encounter; I10 Essential (primary) hypertension; E78.5 Hyperlipidemia, unspecified

== ENCOUNTER 2020-01-14 23:41 | Emergency (ER) | payer BC ==
[~2020-01-14] VITALS: Ht 165.1 cm; Wt 77.1 kg
[~2020-01-14 23:41] MED LIST changes: +DICLOFENAC SODI50 MG PO; +HYDROCODON-ACE1 EAC7 PO; +ZOVIRAX400 MG PO
[2020-01-14 23:49] VITALS: Ht 165.1 cm; Wt 77.1 kg
[2020-01-15 00:20] LABS: BASOPHILS 0.3 % (0-2); EOSINOPHILS 3.8 % (0-7); HEMATOCRIT 38.9 % (36.0-48.0); HEMOGLOBIN 12.4 g/dL (12-16); IMMATURE GRANULOCYTES 0.2 % (0-5); LYMPHOCYTES 24.8 % (15-50); MCH 28.4 pg (26.0-34.0); MCHC 31.9 g/dL (31.0-37.0); MEAN PLATELET VOLUME 9.6 fL (7.4-10.4); MONOCYTES 5.4 % (2-11); NEUTROPHILS 65.5 % (40-80); PLATELET COUNT 176 10x3/uL (130-400); RBC 4.37 10x6/uL (4.00-5.40); RDW 13.4 % (11.5-14.5); WBC 6.3 10x3/uL (4.8-10.8)
[2020-01-15 00:21] LABS: CALC OSMOLALITY 272 mosm/kg (275-300); CARBON DIOXIDE 25.6 mmol/L (21.0-32.0); CHLORIDE - SERUM 103 mmol/L (98-107); CREATININE - SERUM 0.8 mg/dL (0.6-1.3); GLUCOSE 87 mg/dL (74-106); POTASSIUM - SERUM 3.6 mmol/L (3.5-5.1); SODIUM 137 mmol/L (136-145); UREA NITROGEN 12 mg/dL (7-18); eGFR NON AFRICAN AMERICAN 84 mL/min (90-120)
[2020-01-15 00:26] LABS: BILIRUBIN NEGATIVE (NEGATIVE); GLUCOSE NEGATIVE (NEGATIVE); KETONE NEGATIVE (NEGATIVE); NITRITE NEGATIVE (NEGATIVE); SPECIFIC GRAVITY 1.015 (1.005-1.020); UROBILINOGEN NORMAL (NORMAL)
[2020-01-15 00:28] LABS: BACTERIA FEW /hpf (NEGATIVE); EPITHELIAL CELLS 0-5 /hpf (0-5); RED CELLS - URINE 0-5 /hpf (0-5)
[2020-01-15 00:29] LABS: ALBUMIN 3.5 g/dL (3.4-5.0); ALKALINE PHOSPHATASE 67 U/L (30-120); ALT (SGPT) 26 U/L (10-68); BILIRUBIN - TOTAL 0.35 mg/dL (0.2-1.3); LIPASE 160 U/L (73-393); PROTEIN - SERUM 7.1 g/dL (6.4-8.2)
[2020-01-15] MEDS ORDERED: BENTYL 20 MG TA20 MG PO (01:03)
[2020-01-15] MEDS ORDERED: MACROBID100 MG PO (01:03)
[2020-01-15] MEDS ORDERED: ZOFRAN ODT4 MG/UDTAB PO (01:03)
[2020-01-15] MEDS ORDERED: FLAGYL500 MG PO (01:43)
[2020-01-15] MEDS ORDERED: CIPRO500 MG PO (01:43)
[2020-01-15 02:05] VITALS: BP 140/82
== END 2020-01-15 02:07 | disposition home or self-care (01) ==
LOC: D.ER 23:41
PROVIDERS: Family Medicine
DX: K52.9 Noninfective gastroenteritis and colitis, unspecified (principal); R11.0 Nausea; N39.0 Urinary tract infection, site not specified; M54.5 Low back pain; R10.30 Lower abdominal pain, unspecified; E07.9 Disorder of thyroid, unspecified; I10 Essential (primary) hypertension; R30.0 Dysuria

== ENCOUNTER 2020-04-14 08:52 | Outpatient (CLI) | payer BC ==
[2020-01-14 23:49] VITALS: BMI 29.1
[~2020-04-14 08:52] MED LIST changes: +BENTYL 20 MG TA20 MG PO; +CIPRO500 MG PO; +FLAGYL500 MG PO; +ZOFRAN ODT4 MG/UDTAB PO
== END 2020-04-14 08:53 | disposition home or self-care (01) ==
LOC: D.MAMMO 08:52
PROVIDERS: ATTEND Nurse Practitioner Family
DX: Z12.31 Encounter for screening mammogram for malignant neoplasm of breast (principal)

== ENCOUNTER 2020-04-29 08:00 | Outpatient (CLI) | payer BC ==
[2020-01-14 23:49] VITALS: BMI 29.1
== END 2020-04-29 14:34 | disposition home or self-care (01) ==
LOC: D.MAMMO 08:00
PROVIDERS: ATTEND Nurse Practitioner Family
DX: R92.2 Inconclusive mammogram (principal)

== ENCOUNTER → 2020-07-21 08:33 | Outpatient (CLI) | payer BC ==
[2020-01-14 23:49] VITALS: BMI 29.1
--- NOTE | ~2020-07-21 | EC ---
PATIENT:MARVIN GALAN DATE OF SERVICE: 07/21/20 SEX: F MEDICAL RECORD: [id number] DATE OF : 78 [facility] AGE OF PATIENT: 40 ADMISSION DATE: 07/21/20 REFERRING PHYSICIAN: INTERPRETING PHYSICIAN: PHIL KAPLAN MD ECHOCARDIOGRAM REPORT ECHO CHARGES 4 ECHO COMPLETE Date: 07/21/20 CLINICAL DIAGNOSIS: HX OF HTN/ASSESS EF AND VALVES ECHOCARDIOGRAPHIC MEASUREMENTS (adult normal given) AC root (d.<3.7cm) 3.5 cm LV Septum d (<1.2 cm> 1.2 cm Valve Excursion 1.6 cm LV Septum (systole) 1.4 cm Left Atria (s.<4.0cm> 3.6 cm LVPW d(<1.2cm) 1.4 cm RV (d.<2.3cm) 5.9 cm LVPW (sytole) 1.7 cm LV diastole(<5.6CM) 5.2 cm MV E-F(>70mm/sec) cm LV systole 3.5 cm LVOT Diameter 2.2 cm MV exc.(>10mm) 1.5 cm Est.ejection fraction (50-75%) % DOPPLER: LVIT cm/sec A 82.0 cm/sec E 107.0 cm/sec LA cm/sec RVSP 25 mmHg LVOT 112 cm/sec AOP1/2T m/s Asc. Ao 150 cm/sec RVOT 105 cm/sec RA cm/sec PA 105 cm/sec AV Gradient Peak 8.95 mmHg AV Mean 4.60 mmHg AV Area 2.7 cm MV Gradient Peak 5.85 mmHg MV Mean 2.24 mmHg MV Area cm COMMENTS: Refinery Operator Assistant: 2 NORA AMADOR Functional Consultant: 3 Dr. Freitas TAPE# PACS Pericardial Effusion N DATE OF SERVICE: Adequate 2D, color flow imaging, spectral Doppler, and M-Mode. Borderline LVH. LV internal dimension is normal. Wall motion is normal. EF is greater than or equal to 55%. Aortic valve is tricuspid. No evidence of stenosis by Doppler interrogation. Left atrium is normal at 3.6 cm. Mitral valve shows no prolapse. Trace MR. Right-sided chambers are grossly normal. Trace TR. ECHOCARDIOGRAM REPORT [id number] MARVIN GALAN TRANSINT:[id number] Voice Confirmation ID: [id number] DOCUMENT ID: [id number] PHIL KAPLAN MD CC: [id number] DICTATION DATE: 07/21/20 1530 HAND SAMPLE MAKER: 07/22/20 0018 DEP CLI 07/21/20 [id number] [place] [id number]
== END | disposition home or self-care (01) ==
LOC: D.HCCECHO 08:30
PROVIDERS: ATTEND Internal Medicine Interventional Cardiology
DX: R07.9 Chest pain, unspecified (principal)